=== PATIENT | male | born 1945 | race Caucasian/White ===

== ENCOUNTER 2019-10-10 14:06 | Outpatient (CLI) | payer MEDICARE, SELFPAY ==
--- NOTE | ~2019-10-10 | XR_ITS ---
EXAMINATION:XR cervical spine 4-5V DATE: 10/10/2019 14:36 INDICATION: Neck pain TECHNIQUE: AP, lateral, lateral swimmers and odontoid views of the cervical spine are provided. COMPARISON: None FINDINGS: Straightening of the normal cervical lordosis. Odontoid is intact. Normal atlantoaxial interval. Ost eoarthritis at the atlantoaxial articulations, moderate on the left and mild on the right. Vertebral body heights are normal. Moderate disc height loss at T5 C6 and mild disc height loss at C6-C7. Sever e uncovertebral osteoarthritis bilaterally at C5-C6. Moderate to severe bilateral hypertrophic facet osteoarthritis most prominent at C2-C3, C3-C4 and on the left at C4-C5. Ossification along the anteri or longitudinal ligament at C2-C3, at C5-C6 through C7-T1 including across the anterior C6 vertebral body. Prevertebral soft tissues are normal. IMPRESSION: 1. Moderate cervical spondylosis. Reviewed, dictated and finalized at location A.
== END 2019-10-10 14:07 | disposition home or self-care (01) ==
PROVIDERS: PCP Family Medicine; Visit Provider Nurse Practitioner Family
DX: M54.2 Cervicalgia (principal); M47.812 Spondylosis without myelopathy or radiculopathy, cervical region
CPT/HCPCS: 72050

== ENCOUNTER 2019-12-06 08:43 | Outpatient (CLI) | payer MEDICARE, SELFPAY ==
--- NOTE | 2019-12-06 | EST_ITS ---
Patient Info Name: Truman Lopez Age: 74 years : 1945 Gender: Male Ht: 74 in Wt: 245 lbs BSA: 2.44 m2 Exam Date: 12/06/2019 9:53 AM Exam Location: [facility] Stress Patient Status: Outpatient Admit Date: 12/06/2019 Staff Ordering Physician: Delta Nguyễn MD Attending Provider: Delta Nguyễn MD Exercise Technologist: Kristyn Carson RD Exercise Physician: Gigi Owens DO Exam Type: CA stress test treadmill Study Info Indications R07.9 - Chest pain, unspecified A treadmill exercise stress test was performed. Summary 1. 1. Negative Aubrey exercise stress test for ischemic ST changes by ECG criteria. However, he achieved only 77% MPHR for age group which reduces sensitivity of the test. 2. 2. Reduced functional capacity, achieving 6 METs of workload. 3. 3. Inappropriate HR response to exercise either due to last beta tucker medication last night, mild chronotropic incompetence or significant COPD. 4. 3. Appropriate HR recovery at 1 minute post exercise. 5. 4. No imaging with stress testing. 6. 5. Patient informed of the above results. Protocol: Aubrey Stress ECG Details Stage: REST Duration (min): 6 min : 17 sec Speed (mph): 0.0 Grade (%): 0 HR (bpm): 67 SBP (mmHg): 130 DBP (mmHg): 74 METS: --- Stage: REST Duration (min): 14 min : 35 sec Speed (mph): 0.0 Grade (%): 0 HR (bpm): 69 SBP (mmHg): 130 DBP (mmHg): 74 METS: --- Stage: STAGE 1 Duration (min): 1 min : 0 sec Speed (mph): 1.7 Grade (%): 10 HR (bpm): 88 SBP (mmHg): 130 DBP (mmHg): 74 METS: --- Stage: STAGE 1 Duration (min): 2 min : 0 sec Speed (mph): 1.7 Grade (%): 10 HR (bpm): 100 SBP (mmHg): 130 DBP (mmHg): 74 METS: --- Stage: STAGE 1 Duration (min): 3 min : 0 sec Speed (mph): 1.7 Grade (%): 10 HR (bpm): 106 SBP (mmHg): 141 DBP (mmHg): 66 METS: --- Stage: STAGE 2 Duration (min): 1 min : 0 sec Speed (mph): 2.5 Grade (%): 12 HR (bpm): 112 SBP (mmHg): 141 DBP (mmHg): 66 METS: --- Stage: STAGE 2 Duration (min): 1 min : 17 sec Speed (mph): 2.5 Grade (%): 12 HR (bpm): 113 SBP (mmHg): 141 DBP (mmHg): 66 METS: --- Stage: RECOVERY Duration (min): 0 min : 42 sec Speed (mph): 0.0 Grade (%): 0 HR (bpm): 107 SBP (mmHg): 164 DBP (mmHg): 65 METS: --- Stage: RECOVERY Duration (min): 1 min : 42 sec Speed (mph): 0.0 Grade (%): 0 HR (bpm): 91 SBP (mmHg): 164 DBP (mmHg): 65 METS: --- Stage: RECOVERY Duration (min): 2 min : 42 sec Speed (mph): 0.0 Grade (%): 0 HR (bpm): 82 SBP (mmHg): 190 DBP (mmHg): 66 METS: --- Stage: RECOVERY Duration (min): 3 min : 42 sec Speed (mph): 0.0 Grade (%): 0 HR (bpm): 78 SBP (mmHg): 190 DBP (mmHg): 66 METS: --- Stage: RECOVERY Duration (min): 4 min : 42 sec Speed (mph): 0.0 Grad
--- NOTE | 2019-12-08 17:31 | WPDPFTINT ---
PFT Interpretation PFT Interpretation: DOS: 12/06/2019 REQUESTING: Dr. Delta Chopra REASON FOR TESTING: COPD PULMONARY FUNCTION TESTS Results are reproducible and reliable Spirometry: FEV1 89%, normal. FVC 82%, normal. FEV1% is normal. No change with bronchodilator. Lung volumes: TLC 101%, normal. RV 123%, mild air trapping. Increased airway resistance 171%. Diffusion: DLCO 91%, normal. Flow volume loop: Mild coving of the expiratory limb. IMPRESSION: Normal spirometry, no change with bronchodilator. There is mild air trapping and increased airway resistance. These findings are consistent with an obstructive process, even with normal spirometry, and can be associated with dyspnea on exertion. Normal diffusion. Clinical correlation is recommended. The lack of response to bronchodilator should not preclude use if clinically indicated. Rosa Russell MD
== END 2019-12-06 08:44 | disposition home or self-care (01) ==
PROVIDERS: PCP Family Medicine; Visit Provider Family Medicine
DX: J44.9 Chronic obstructive pulmonary disease, unspecified (principal)
CPT/HCPCS: 93017; 94060; 94726; 94729

== ENCOUNTER 2021-02-19 11:34 | Outpatient (CLI) | payer MEDICARE, SELFPAY ==
--- NOTE | ~2021-02-19 | XR_ITS ---
XR lumbar spine 2-3V DATE: 02/19/2021 11:57 INDICATION: Low back pain radiating to left leg TECHNIQUE: AP, lateral, coned lateral lumbosacral views COMPARISON: 02/23/2019 lumbar spine FINDINGS: There is moderate degenerative disc disease throughout the lumbar spine. There is degenerative change at the facet joints with minimal grade 1 anterolisthesis at L3-4 and L4- 5. The lumbar pedicles are intact. No fracture or bone destruction is detected. The sacroiliac joints ap pear normal. IMPRESSION: Multilevel mild to moderate degenerative disc disease Degenerative change at the facet joints with associated minimal grade 1 anterolisthesis at L3-4 and L 4-5 Reviewed, dictated and finalized at location A. IMPRESSION: Multilevel mild to moderate degenerative disc disease Degenerative change at the facet joints with associated minimal grade 1 anterol isthesis at L3-4 and L4-5
== END 2021-02-19 11:35 | disposition home or self-care (01) ==
PROVIDERS: PCP Family Medicine; Visit Provider Nurse Practitioner Family
DX: M54.32 Sciatica, left side (principal); M51.36 Other intervertebral disc degeneration, lumbar region
CPT/HCPCS: 72100

== ENCOUNTER 2021-05-14 15:24 | Outpatient (CLI) | payer MEDICARE, SELFPAY ==
--- NOTE | ~2021-05-14 | XR_ITS ---
EXAMINATION: XR chest 2V DATE: 05/14/2021 15:53 INDICATION: Cough. TECHNIQUE: Frontal and lateral views of the chest were obtained. COMPARISON: None. FINDINGS: The chest demonstrates clear lungs without pneumonia, pleural effusion, or pneumothorax. Th e heart size is normal. IMPRESSION: 1. No acute cardiopulmonary disease. Reviewed, dictated and finalized at location A. [employer]GER
[2021-05-14 16:23] LABS: Basophils Absolute Auto 0.1 K/mm3 (0.0-0.1); Basophils Percent Auto 1.1 % (0.2-1.2); Eosinophils Absolute Auto 0.3 K/mm3 (0-0.3); Eosinophils Percent Auto 2.7 % (0-4.4); Hematocrit 44.6 % (42.0-52.0); Hemoglobin 14.8 g/dL (14.0-18.0); Immature Granulocyte Absolute 0.04 K/mm3 (0.00-0.031); Immature Granulocyte Percent A 0.4 % (0-0.5); Lymphocytes Absolute Auto 2.79 K/mm3 (0.9-3.2); Lymphocytes Percent Auto 29.4 % (18.3-44.2); Mean Corpuscular HGB Conc 33.2 g/dl (32-36); Mean Corpuscular Volume 93.5 fl (80-100); Mean Platelet Volume 10.6 fl (7.4-10.4); Monocytes Absolute Auto 0.7 K/mm3 (0.1-0.6); Monocytes Percent Auto 7.1 % (2.6-8.5); Neutrophils Absolute Auto 5.6 K/mm3 (1.3-6.7); Neutrophils Percent Auto 59.3 % (45.5-73.1); Platelet Count Result 266 k/mm3 (150-375); Red Blood Count 4.77 M/mm3 (4.6-6.20); Red Cell Distribution Width 13.6 % (11.5-14.5); White Blood Count 9.5 K/mm3 (4.5-10.0)
[2021-05-14 16:33] LABS: Alanine Aminotransferase 29 U/L (4-50); Albumin Level 4.7 g/dL (3.5-5.1); Alkaline Phosphatase 52 U/L (38-126); Anion Gap 7 mmol/L (8-16); Aspartate Amino Transferase 29 U/L (17-59); Bilirubin,Total 0.6 mg/dL (0.2-1.3); Blood Urea Nitrogen 19 mg/dL (9-20); Calcium 9.8 mg/dL (8.4-10.2); Carbon Dioxide 29 mmol/L (22-30); Chloride 102 mmol/L (98-107); Estimated Glomerular Filt Rate 54; Glucose 78 mg/dL (65-110); Potassium 4.5 mmol/L (3.4-5.0); Sodium 138 mmol/L (137-145)
[2021-05-14 16:46] LABS: Influenza Control Positive
== END 2021-05-14 15:25 | disposition home or self-care (01) ==
PROVIDERS: PCP Family Medicine; Visit Provider Family Medicine
DX: R05.9 Cough, unspecified (principal); Z20.822 Contact with and (suspected) exposure to COVID-19
CPT/HCPCS: 71046; 80053; 85025; 87081; 87804; 87880

== ENCOUNTER 2022-11-11 01:06 | Day surgery (SDC) | payer MEDICARE, SELFPAY ==
[2022-11-01 13:25] VITALS: BMI 32.5
--- NOTE | 2022-11-10 13:15 | PM.HPGS ---
History of Present Illness History of Present Illness Consent: Risks, benefits, and alternatives have been discussed and questions answered. Patient agrees to proceed with procedure. Chief complaint: other fecal abnormalities Narrative: Truman Lopez is a 77 year old male Referred for colon cancer screening. He recently performed a Cologuard test which was positive. He has had polyps removed in the past Review of Systems Review of Systems: All systems reviewed & are unremarkable except as noted in HPI and below PMFSH Social History Social History Smoking status: Never smoker Alcohol intake: current Drinks per week: 6 Substance use type: does not use Living arrangements: with family Spiritual care concerns: No Meds Home Medications and Allergies Home Medications Medication Instructions Recorded Confirmed Type atorvastatin 40 mg tablet 40 mg PO DAILY 11/01/22 11/01/22 History fenofibrate 160 mg tablet 160 mg PO DAILY 11/01/22 11/01/22 History metoprolol succinate 25 mg 25 mg PO DAILY 11/01/22 11/01/22 History tablet,extended release 24 hr sertraline 50 mg tablet 50 mg PO DAILY 11/01/22 11/01/22 History Allergies Allergy/AdvReac Type Severity Reaction Status Date / Time No Known Allergies Allergy Unknown Verified 11/11/22 07:46 Exam Const: General: alert Orientation/consciousness: patient oriented x3 Resp: Auscultation: clear to auscultation bilaterally Cardio: Rhythm: regular rhythm GI: GI Palp: Yes Soft to palpation and No Tenderness to palpation present (GI) Neuro: General: patient oriented x3 Assessment and Plan Assessment and plan (1) Colon cancer screening: Code(s): Z12.11 - Encounter for screening for malignant neoplasm of colon Status: Acute Assessment and Plan: Colonoscopy with possible biopsy or polypectomy or cautery or injection of substances.
[2022-11-11 07:48] VITALS: BP 168/84; PULSE 84; RESP 18; TEMP 36.1; O2SAT 98
[2022-11-11] MEDS: LACTATED RINGERS 1,000 ML 150 ML IV CONT ×2 (08:00→09:30)
[2022-11-11] MEDS: ONDANSETRON INJ 4 MG/2 ML VIAL IV PUSH (08:07)
--- NOTE | 2022-11-11 08:43 | WPDANESEPPF ---
Anes - Initial Pre Proc Eval Procedure: Operation Date: 11/11/22 09:00 Proposed Procedures p Colonoscopy - Uzair Hayes MD Date/Time: 11/11/22 08:43 Surgeon: Uzair Hayes MD Pre Op Diagnosis: other fecal abnormalities Patient Data Age: 77 Gender: M Height: 1.88 m Weight: 116.5 kg Last Vital Signs Temp 96.9 F L 11/11/22 07:48 Pulse 84 11/11/22 07:48 Resp 18 11/11/22 07:48 BP 168/84 H 11/11/22 07:48 Pulse Ox 98 11/11/22 07:48 O2 Del Method Room Air 11/11/22 07:48 Allergies Allergy/AdvReac Type Severity Reaction Status Date / Time No Known Allergies Allergy Unknown Verified 11/11/22 07:46 Home Medications Medication Instructions Recorded Confirmed Type atorvastatin 40 mg tablet 40 mg PO DAILY 11/01/22 11/01/22 History fenofibrate 160 mg tablet 160 mg PO DAILY 11/01/22 11/01/22 History metoprolol succinate 25 mg 25 mg PO DAILY 11/01/22 11/01/22 History tablet,extended release 24 hr sertraline 50 mg tablet 50 mg PO DAILY 11/01/22 11/01/22 History Patient hx anesthesia problems: none Family hx anesthesia problems: none Results Review: All pre-operative results and documents have been reviewed as part of the pre-operative evaluation. [facility] Social History Social History Smoking status: Never smoker Alcohol intake: current Drinks per week: 6 Substance use type: does not use Living arrangements: with family Spiritual care concerns: No Anes - Eval Final PreProcedure Day of Procedure 11/11/22 08:43 Patient weight: obese Heart: regular rate and rhythm Lungs: clear to auscultation Airway: Mallampati scale class II Neurological: alert and oriented Last oral intake: >/= 8 hours ASA classification: III Emergent: no Anesthetic plan: proceed Anesthesia type and monitoring: general GIVS and standard monitoring Results Review: All pre-operative results and documents have been reviewed as part of the pre-operative evaluation. Informed Consent: The patient's anesthetic plan and its attendant risks and benefits were discussed with the patient/family/POA. Questions were solicited and answers provided to the satisfaction of the patient/family/POA.
[2022-11-11] MEDS: SIMETHICONE ORAL SUSPENSION 20 MG/0.3 ML 30 ML BOTTLE 0.6 ML IRRIGATION (09:04)
[2022-11-11 09:26] VITALS: BP 104/63; PULSE 73; RESP 18; O2SAT 95
[2022-11-11 09:36] VITALS: BP 118/77; PULSE 71; RESP 17; O2SAT 97
[2022-11-11 09:46] VITALS: BP 122/89; PULSE 70; RESP 23; O2SAT 99
== END 2022-11-11 09:55 | disposition home or self-care (01) ==
PROVIDERS: PCP Family Medicine; Visit Provider Internal Medicine Gastroenterology
PROC: 0DJD8ZZ Inspection of Lower Intestinal Tract, Via Natural or Artificial Opening Endoscopic (ICD-10-PCS; CPT 45378; principal; 2022-11-11 09:00)
DX: Z12.11 Encounter for screening for malignant neoplasm of colon (principal); D12.5 Benign neoplasm of sigmoid colon; K63.5 Polyp of colon; K62.1 Rectal polyp; K57.30 Diverticulosis of large intestine without perforation or abscess without bleeding; R19.5 Other fecal abnormalities; E66.9 Obesity, unspecified; Z68.33 Body mass index [BMI] 33.0-33.9, adult
CPT/HCPCS: 45385; 45380; 88305; J2001; J2405; J2704; J7120

== ENCOUNTER 2023-03-17 10:40 | Outpatient (CLI) | payer MEDICARE, SELFPAY ==
[2023-03-17 11:55] LABS: Basophils Absolute Auto 0.1 K/mm3 (0.0-0.1); Basophils Percent Auto 1.3 % (0.2-1.2); Eosinophils Absolute Auto 0.3 K/mm3 (0-0.3); Eosinophils Percent Auto 4.7 % (0-4.4); Hematocrit 44.2 % (42.0-52.0); Hemoglobin 14.4 g/dL (14.0-18.0); Immature Granulocyte Absolute 0.04 K/mm3 (0.00-0.031); Immature Granulocyte Percent A 0.6 % (0-0.5); Lymphocytes Percent Auto 22.9 % (18.3-44.2); Mean Corpuscular HGB Conc 32.6 g/dl (32-36); Mean Corpuscular Hemoglobin 30.4 pg (26-34); Mean Corpuscular Volume 93.4 fl (80-100); Mean Platelet Volume 11.1 fl (7.4-10.4); Monocytes Absolute Auto 0.6 K/mm3 (0.1-0.6); Monocytes Percent Auto 8.2 % (2.6-8.5); Neutrophils Absolute Auto 4.4 K/mm3 (1.3-6.7); Neutrophils Percent Auto 62.3 % (45.5-73.1); Platelet Count Result 226 k/mm3 (150-375); Red Blood Count 4.73 M/mm3 (4.6-6.20); Red Cell Distribution Width 13.7 % (11.5-14.5)
[2023-03-17 12:07] LABS: Alanine Aminotransferase 25 U/L (6-50); Albumin Level 4.4 g/dL (3.5-5.1); Alkaline Phosphatase 50 U/L (38-126); Anion Gap 10 mmol/L (8-16); Aspartate Amino Transferase 28 U/L (17-59); Bilirubin,Total 0.8 mg/dL (0.2-1.3); Blood Urea Nitrogen 21 mg/dL (9-20); Calcium 9.4 mg/dL (8.4-10.2); Carbon Dioxide 26 mmol/L (22-30); Chloride 102 mmol/L (98-107); Cholesterol 150 mg/dL (0-200); Estimated Glomerular Filt Rate 59; Glucose 98 mg/dL (65-110); HDL Direct 32 mg/dL; Potassium 4.3 mmol/L (3.4-5.0); Sodium 138 mmol/L (137-145); Triglycerides 148 mg/dL (<150)
[2023-03-17 12:18] LABS: LDL Cholesterol Direct 84 mg/dL
[2023-03-17 12:35] LABS: Prostate Specific Antigen 3.7 ng/mL (< OR = 4.0)
[2023-03-17 12:45] LABS: Vitamin D 25 Hydroxy 25.1 ng/mL
[2023-03-17 12:52] LABS: Creatinine Urine 108.1 mg/dL
[2023-03-17 13:11] LABS: MALB Creatinine Ratio < 5.6 mg/g (0-30); Microalbumin Urine Random < 6.0 mg/L (0-16.7)
== END 2023-03-17 10:41 | disposition home or self-care (01) ==
PROVIDERS: PCP Family Medicine; Visit Provider Nurse Practitioner Adult Health
DX: E78.5 Hyperlipidemia, unspecified (principal); E55.9 Vitamin D deficiency, unspecified; R53.1 Weakness; R53.83 Other fatigue; G62.9 Polyneuropathy, unspecified; Z12.5 Encounter for screening for malignant neoplasm of prostate; I10 Essential (primary) hypertension
CPT/HCPCS: 36415; 80053; 80061; 82043; 82306; 84153; 85025; G0103

== ENCOUNTER 2023-12-19 10:12 | Outpatient (CLI) | payer MEDICARE, SELFPAY ==
--- NOTE | ~2023-12-19 | XR_ITS ---
XR hand LT min 3V Ordering provider: Phil Mcarthur MD History: . CHRONIC PAIN IN LEFT HAND, UNABLE TO MAKE A FIST . Comparison: None. FINDINGS: BONES: No acute fracture or dislocation. JOINT SPACES: Osteoarthritic changes of the distal interphalangeal joint of the little finger. Slight narrowing of the distal interphalangeal joints of the other fingers. SOFT TISSUES: Unremarkable. IMPRESSION: No acute osseous abnormality left hand. Reviewed, dictated and finalized at location A.
== END 2023-12-19 10:13 | disposition home or self-care (01) ==
LOC: ANHIMG 10:15
PROVIDERS: PCP Family Medicine; Visit Provider Orthopaedic Surgery
DX: M79.642 Pain in left hand (principal)
CPT/HCPCS: 73130

== ENCOUNTER 2024-02-23 10:41 | Outpatient (CLI) | payer MEDICARE, SELFPAY ==
--- NOTE | 2024-02-23 10:50 | ECG_ITS ---
Test Date: 2024-02-23 11:13:06 Measurements Intervals [place] Rate: 72 P: 37 [place]: 144 QRS: 19 QRSD: 89 T: 27 QT: 369 QTc: 405 Interpretive Statements SINUS RHYTHM WARNING: DATA QUALITY MAY AFFECT INTERPRETATION No previous ECG available for comparison Electronically Signed On 02-23-2024 13:45:04 CDT by Mayela Tavares M.D.
[2024-02-23 12:16] LABS: Anion Gap 6 mmol/L (4-12); Blood Urea Nitrogen 23 mg/dL (9-20); Calcium 9.6 mg/dL (8.4-10.2); Carbon Dioxide 28 mmol/L (22-30); Chloride 103 mmol/L (98-107); Estimated Glomerular Filt Rate 54; Glucose 95 mg/dL (65-110); Potassium 4.3 mmol/L (3.4-5.0); Sodium 137 mmol/L (137-145)
[2024-02-23 12:17] LABS: Prothrombin Time 13.3 Seconds (11.1-14.7)
[2024-02-23 12:18] LABS: Partial Thromboplastin Time 24.5 Seconds (22.3-36.8)
== END 2024-02-23 10:42 | disposition home or self-care (01) ==
LOC: ANHSURGERY 10:47
PROVIDERS: Anesthesiology; PCP Family Medicine; Visit Provider Orthopaedic Surgery
DX: Z01.812 Encounter for preprocedural laboratory examination (principal); E78.5 Hyperlipidemia, unspecified; I12.9 Hypertensive chronic kidney disease with stage 1 through stage 4 chronic kidney disease, or unspecified chronic kidney disease; N18.9 Chronic kidney disease, unspecified
CPT/HCPCS: 36415; 80048; 85610; 85730; 93005

== ENCOUNTER 2024-02-29 01:10 | Day surgery (SDC) | payer MEDICARE, SELFPAY ==
[2024-02-22 13:27] VITALS: BMI 34.5
--- NOTE | 2024-02-22 13:39 | PC.NURSE ---
Report to the Outpatient Waiting Room, entrance under the green pavilion located off [facility], at time __11:30am__ on date 02/29/24 . Planned Procedure Time: _1:30pm .? Time changes happen often and if your time is changed the preop area will call you the afternoon before. - You and your visitor will be asked to self-screen and do not enter if you have any COVID symptoms. Please call surgeon if you need to reschedule. - A mask is optional within the hospital at this time. Patients may have clear liquids (water, carbonated beverages, clear teas, apple juice) until 3 hours prior to surgery with a maximum of 20 ounces. - No food from midnight until time of surgery and no smoking (10:30am) Take only the following medications with a SIP of water on the morning of surgery: Metoprolol and Sertaline , Tylenol if needed DO NOT STOP ANY OF YOUR OTHER PRESCRIPTION MEDICATIONS PRIOR TO SURGERY EXCEPT THE FOLLOWING Medications to discontinue per physician ____None Date to take last dose None Please no make-up, nail faroese, hairspray, perfume, deodorant, or body powder the day of surgery.? No jewelry (including any body piercings) or valuables the day of surgery, leave them at home.? Please take a shower or bath the night before, or the morning of, surgery with an antibacterial soap.? Wear comfortable, loose fitting clothing.? - Jewelry must be removed prior to entering the operating room.? Rings and piercings that are not removed may be cut off. - The hospital will not accept responsibility for valuables.? - Please leave all valuables, including medications, at home the day of surgery. If you are going home after surgery, a licensed helper/driver must drive you home.? - NO public transportation without another adult if you receive anesthesia. - We recommend that an adult stay with you for 24 hours following discharge. - We also recommend that you do not drive, make important decision, drink alcoholic beverages, or take any drugs that were not prescribed by your health care provider for at least 24 hours after your discharge time. Follow any additional instructions given to you from your surgeon. Telephone instructions given to __patient and asked if any additional questions and then verbalized understanding. Patient advised to call surgeon office or pre surgery nurse liaison [phone] if any additional questions.
--- NOTE | 2024-02-29 07:59 | WPDHPUPDATE1 ---
History and Physical Update Update Date/Time: 02/29/24 07:59 Will add the 3rd trigger finger release to the procedure. Patient complains of triggering in both the 4th and 3rd fingers. History and Physical has been reviewed, including an updated exam of the patient. There are NO changes in the patient's condition. Risks, benefits, and alternatives have been discussed and questions answered. Patient agrees to proceed with procedure.
--- NOTE | 2024-02-29 08:09 | WPDANESEPPF ---
Anes - Initial Pre Proc Eval Procedure: Operation Date: 02/29/24 09:45 Proposed Procedures p Left Carpal Tunnel Release, - Phil Mcarthur MD s Left Fourth Trigger Finger Release - Phil Mcarthur MD Date/Time: 02/29/24 08:09 Surgeon: Phil Mcarthur MD Pre Op Diagnosis: Left Carpal Tunnel syndrome, trigger finger 4th Patient Data Age: 78 Gender: M Height: 1.88 m Weight: 122 kg Allergies Allergy/AdvReac Type Severity Reaction Status Date / Time No Known Allergies Allergy Unknown Verified 02/22/24 13:25 Home Medications Medication Instructions Recorded Confirmed Type atorvastatin 40 mg tablet 40 mg PO DAILY 11/01/22 02/22/24 History fenofibrate 160 mg tablet 160 mg PO DAILY 11/01/22 02/22/24 History metoprolol succinate 25 mg 25 mg PO DAILY 11/01/22 02/22/24 History tablet,extended release 24 hr sertraline 50 mg tablet 50 mg PO DAILY 11/01/22 02/22/24 History Patient hx anesthesia problems: none Family hx anesthesia problems: none Results Review: All pre-operative results and documents have been reviewed as part of the pre-operative evaluation. [facility] Past Medical History Medical History Anesthesia of skin Carpal tunnel syndrome, left Chronic kidney disease Depression Essential (primary) hypertension Hypercholesterolemia Hyperlipidemia Obesity Paresthesia of skin Polyneuropathy Sciatica, left side Slow transit constipation Surgical History Surgical History History of carpal tunnel surgery of right wrist History of repair of left rotator cuff History of surgery bilateral knees Family History Family History Mother Diabetes mellitus Depression FH: ovarian cancer Social History Social History Smoking status: Never smoker Alcohol intake: current Drinks per week: 1 Substance use: never Substance use type: does not use Do You Feel Safe in your Home?: Yes Lack of Transportation: No Lack of Food: Never True Current Housing: I Have Housing Concerned About Future Housing: No Difficulty Paying Gas/Electric Bills: No Difficulty Paying for Meds: No Currently Unemployed: No Education: Associate Degree Difficulty w/ Childcare or Family Care: No Living arrangements: alone Spiritual care concerns: No Anes - Eval Final PreProcedure Day of Procedure 02/29/24 08:09 Patient weight: obese Heart: regular rate and rhythm Lungs: clear to auscultation Airway: Mallampati scale class II Neurological: alert and oriented Last oral intake: >/= 8 hours ASA classification: III Emergent: no Anesthetic plan: proceed Anesthesia type and monitoring: general GIVS and standard monitoring Results Review: All pre-operative results and documents have been reviewed as part of the pre-operative evaluation. Informed Consent: The patient's anesthetic plan and its attendant risks and benefits were discussed with the patient/family/POA. Questions were solicited and answers provided to the satisfaction of the patient/family/POA.
[2024-02-29 08:30] VITALS: BP 153/84; PULSE 82; TEMP 36.6; O2SAT 97; BMI 33.0
[2024-02-29] MEDS: LACTATED RINGERS 1,000 ML 30 ML IV CONT (08:32)
[2024-02-29] MEDS: KETOROLAC 15 MG/ML VIAL (*BKC) IV PUSH (08:32)
[2024-02-29] MEDS: ACETAMINOPHEN 500 MG TABLET 1000 MG PO (08:32)
[2024-02-29] MEDS: ceFAZolin 2 GM/D5W 50 ML 2 GM/50 ML BAG IVPB (09:50)
[2024-02-29] MEDS: BUPIVACAINE/EPINEPHRINE 0.5% 50 ML VIAL 10 ML INFILTRATE (10:18)
[2024-02-29 10:57] VITALS: BP 134/77; PULSE 73; RESP 16; O2SAT 96
[2024-02-29 11:27] VITALS: BP 109/66; PULSE 69; RESP 16
[2024-02-29 11:54] VITALS: BP 130/81; PULSE 69; RESP 16
--- NOTE | 2024-02-29 16:48 | W.PM.PROC2 ---
Procedure Note - Detailed Date of Procedure 02/29/24 Pre-op Diagnosis Left Carpal Tunnel syndrome, trigger finger 3rd and 4th. Post-op Diagnosis Same Procedure Performed Left 1. Carpal tunnel release 2. Trigger finger release 3rd and 4th. Surgeon Phil Mcarthur MD Anesthesia General Findings Release of fibrotic contracture at the 4th ray. Description of Procedure General anesthetic sedation was administered. The hand was prepped and draped in the usual sterile fashion. The proposed incisions were marked using typical anatomic landmarks. 10ML 0.5% Marcaine with epinephrine was injected along the incision lines and at the distal forearm. The limb was exsanguinated and the tourniquet inflated to 250 millimeters of mercury. Transverse incisions created near the A1 brandon the 3rd and 4th ray. Significant contracture along the 4th ray was released with tenotomy scissors. The A1 brandon was clearly identified and released sharply. Tendons were pulled into the wound, releasing any adhesions, and demonstrating excellent mobility. Attention was turned to the carpal tunnel. A longitudinal incision was taken sharply. Dissection was brought down to the transverse carpal ligament. Under direct vision the ligament was incised sharply. The proximal release was carried out with dissection scissors. The contents of the carpal canal were protected with a [place] elevator. The transverse carpal ligament was confirmed to be widely patent. The wounds were closed with interrupted 3-0 Prolene suture. A sterile bulky dressing was placed. Patient was brought to the recovery room in stable condition. Estimated Blood Loss 1 Pathology None sent Complications No immediate complications Condition Stable Disposition PACU [facility] Billing Surgery - Charge Forward: Surgery Billing
== END 2024-02-29 12:05 | disposition home or self-care (01) ==
PROVIDERS: PCP Family Medicine; Visit Provider Orthopaedic Surgery
PROC: (CPT 64721; principal; 2024-02-29 09:45)
PROC: (CPT 26055; 2024-02-29 09:45)
DX: G56.02 Carpal tunnel syndrome, left upper limb (principal); M65.332 Trigger finger, left middle finger; M65.342 Trigger finger, left ring finger; I12.9 Hypertensive chronic kidney disease with stage 1 through stage 4 chronic kidney disease, or unspecified chronic kidney disease; N18.9 Chronic kidney disease, unspecified; E78.00 Pure hypercholesterolemia, unspecified; F32.A Depression, unspecified; E66.9 Obesity, unspecified; Z68.33 Body mass index [BMI] 33.0-33.9, adult
CPT/HCPCS: 64721; 26055 ×2; 36415; 80048; 85610; 85730; 93005; A9270; J0690; J1885; J2704; J3010; J7120